=== PATIENT | female | born 2000 | race Asian ===

== ENCOUNTER 2022-06-20 01:20 | Outpatient (CLI) | payer OTHER, SELFPAY | END 2022-06-20 01:21 | disposition home or self-care (01) | LOC: AMB 08-12 11:36 | PROVIDERS: Visit Provider Family Medicine | DX: F10.129 Alcohol abuse with intoxication, unspecified (principal); R41.82 Altered mental status, unspecified; R11.2 Nausea with vomiting, unspecified | CPT/HCPCS: A0425; A0429 ==

== ENCOUNTER 2022-06-20 01:50 | Emergency (ER) | payer SELFPAY ==
[2022-06-20 01:50] VITALS: BP 109/68; PULSE 84; RESP 18; TEMP 36.6; O2SAT 99; BMI 18.0
[2022-06-20 02:00] VITALS: BP 109/68; PULSE 84; RESP 18; TEMP 36.6; O2SAT 99; BMI 18.0
--- NOTE | 2022-06-20 07:10 | ED.ALCOHOL ---
HPI - Alcohol General Date Seen: 06/20/22 Chief Complaint: Alcohol/Intoxication Stated Complaint: ETOH Time Seen by Provider: 06/20/22 04:53 Source: patient, EMS, RN notes reviewed and old records reviewed Mode of arrival: EMS Limitations: no limitations History of Present Illness HPI narrative: Patient is a 21-year-old [employer] student brought to the [place] [facility] by EMS after friends found her unresponsive. Patient had been using alcohol tonight and had been sleeping at a friend's place. Her friends noted that she would not wake up. [place] security was called and she still would not wake up and thus EMS was called. EMS notes that she was challenging to wake up but did finally she was unable to walk at that time. [place] Police for present. Patient was convinced to come to the ER. Initially was very adamant that she did not want to go but EMS crew were able to convince her to come and get checked out. Here in the emergency room patient tells me that she thinks she is actually sober. She is answering yes or no questions with long drawn out stories. She is cooperative however and states that she feels that she is safe to go home. Patient denies any assaults or trauma tonight. Specifically no head injury falls. She denies nausea. She is very evasive when she is talking about alcohol use. She does deny any drug use. Related Data Home Medications Medication Instructions Recorded Confirmed No Known Home Medications 06/20/22 06/20/22 Allergies Allergy/AdvReac Type Severity Reaction Status Date / Time No Known Drug Allergies Allergy Verified 06/20/22 04:57 Review of Systems Status of ROS Reports: 10 or more systems reviewed and unremarkable except as noted in History and below Const Denies: fever or chills Eyes Denies: change in vision ENMT Denies: throat pain, neck pain or difficulty swallowing Cardio Denies: chest pain GI Denies: abdominal pain, nausea, vomiting or difficulty swallowing Musculo Denies: neck pain Integ/Breast Denies: rash Neuro Denies: headache or weakness in extremities PFSH PFS Medical History No significant past medical history Surgical History No significant past surgical history Social History Smoking Status: Never smoker Do you use any of these nicotine containing products: None Second hand tobacco smoke exposure: No How often do you have a drink containing alcohol: never How often do you have six or more drinks on one occasion: Never AUDIT-C Alcohol total score: 0 Non-prescribed substance use: denies use Exam Narrative: Exam Narrative: Patient is alert and oriented. She is very talkative. She is tending to hot from topic to topic. Her eyes are clear her EOM are full and pupils are equal and reactive. She has some S care beneath her eyes or possibly eye makeup. Head is atraumatic and normocephalic. Neck is supple. Range of motion is full. No midline tenderness. Lungs are clear to auscultation. Heart is with regular rate and rhythm. Abdomen soft nontender. Lower extremities without edema. Pedal pulses are intact and symmetrical. Moving all extremities. Protecting airway. Const: Vital Signs, click to edit/add: Vital Signs - 24 hr 06/20/22 01:50 06/20/22 02:00 06/20/22 02:00 Temperature 97.9 F 97.9 F Pulse Rate [Right Pulse Oximeter] 84 84 Respiratory Rate 18 18 Blood Pressure [Le ft Upper Arm] 109/68 109/68 Pulse Oximetry 99 99 99 Oxygen Delivery Me thod Room Air Room Air 06/20/22 07:12 06/20/22 07:12 Temperature 97.9 F 97.9 F Pulse Rate [Right Pulse Oximeter] 74 74 Respiratory Rate 18 18 Blood Pressure [Le ft Upper Arm] 110/74 110/74 Pulse Oximetry 99 Oxygen Delivery Me thod Room Air Course Course Hospital Course: Patient is alert oriented and protecting airway with a GCS of 15. She is quite upset at her friend's for having called EMS but is gracious and cooperative here. I did agree with her that she can go home but asked that she proved to me that she can not eat, drink, and walk and care for herself before I formally discharge her. She states bring me what ever to eat or drink. However, she falls asleep in the room prior to that that and we do a lower to sleep in the ED for a few hours. Reevaluation(s) Reevaluation #1: Patient continues to be resting. She is protecting her airway. Vital Signs Vital signs: Initial Vital Signs Temperature 97.9 F 06/20/22 01:50 Temperature Source Temporal Artery Scan 06/20/22 01:50 Pulse Rate 84 06/20/22 01:50 Respiratory Rate 18 06/20/22 01:50 Blood Pressure 109/68 06/20/22 01:50 Blood Pressure Mean 81 06/20/22 01:50 Blood Pressure Position Supine 06/20/22 01:50 Pulse Oximetry 99 06/20/22 01:50 Oxygen Delivery Method 06/20/22 01:50 Vital Signs Temperature 97.9 F 06/20/22 01:50 Pulse Rate 84 06/20/22 01:50 Respiratory Rate 18 06/20/22 01:50 Blood Pressure 109/68 06/20/22 01:50 Pulse Oximetry 99 06/20/22 01:50 Oxygen Delivery Method 06/20/22 01:50 Temperature 97.9 F 06/20/22 07:12 Pulse Rate 74 06/20/22 07:12 Respiratory Rate 18 06/20/22 07:12 Blood Pressure 110/74 06/20/22 07:12 Pulse Oximetry 99 06/20/22 07:12 Oxygen Delivery Method 06/20/22 07:12 MDM - Alcohol MDM Narrative Medical decision making narrative: 1. Alcohol intoxication-patient is noted to have been unresponsive when friends tried to awake her earlier this morning. EMS notes that she was unable to ambulate and care for self and thus they did convince her to come to the emergency room for evaluation. Patient noted that she felt fine and would be happy to show me that she could care for herself but then fell asleep. She continued to protect her airway and this morning she is now able to ambulate without difficulty eat and drink and thus I will allow her to go. 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 Two and half years ago she actually had to be intubated because she was not protecting her airway after drinking a large amount of vodka. 2. Disposition-patient is discharged home via public safety. She should return as needed. No labs were done today as patient was very concerned about any further charges in the emergency room. Truly I did not feel that labs would help us decide about discharge versus staying here. And thus I did not order them. Medical Records Attestation: I reviewed the patient's medical records. Discharge Plan Discharge Clinical Impression: Alcoholic intoxication Patient Disposition: Home, Self-Care Condition: Improved Additional Instructions: Abstain from alcohol in large amounts. This is your 2nd visit to the emergency room for alcohol related events. Please only use in moderation if at all. I would recommend pushing fluids today and light activity. Return to the emergency room if needed. Prescriptions: No Action No Known Home Medications Follow Up/Referrals: Provider,Not a Local [Primary Care Provider] - Stand Alone Forms: [facility] [employer] Info Instructions
[2022-06-20 07:12] VITALS: BP 110/74; PULSE 74; RESP 18; TEMP 36.6; O2SAT 99
== END 2022-06-20 07:22 | disposition home or self-care (01) ==
PROVIDERS: Emergency Provider Family Medicine
DX: F10.129 Alcohol abuse with intoxication, unspecified (principal)
CPT/HCPCS: 94761; 99283